=== PATIENT | female | born 1995 ===

== ENCOUNTER 2020-10-17 18:00 | Inpatient (IN) | payer MEDICAID, OTHER, SELFPAY ==
[2020-10-17 19:41] VITALS: BMI 34.2
[2020-10-17] MEDS ORDERED: Misoprostol 200 MCG TAB PR PRN (19:41)
[2020-10-17] MEDS ORDERED: Methylergonovine 0.2 MG/ML VIAL IM PRN (19:41)
[2020-10-17] MEDS ORDERED: HYDROcodone/Acetaminophen 5/325 mg Tablet PO PRN (19:41)
[2020-10-17] MEDS ORDERED: Carboprost 250 MCG/ML AMP IM PRN (19:41)
[2020-10-17] MEDS ORDERED: hydrALAZINE 20 MG/ML VIAL SLOW IVP PRN (19:41)
[2020-10-17] MEDS ORDERED: Promethazine HCl 25 MG/ML VIAL IM PRN (19:41)
[2020-10-17] MEDS ORDERED: Ibuprofen 800 MG TAB PO PRN (19:41)
[2020-10-17] MEDS ORDERED: Lidocaine 1% (PF) 30 ML VIAL SC PRN (19:41)
[2020-10-17] MEDS ORDERED: Acetaminophen 500 MG TAB PO PRN (19:41)
[2020-10-17] MEDS ORDERED: Diphenoxylate HCl/Atropine Tablet PO PRN (19:41)
[2020-10-17] MEDS ORDERED: Ondansetron PF 4 MG/2 ML Vial IVP PRN (19:41)
[2020-10-17] MEDS ORDERED: Penicillin G 2.5 MILL.units 2.5 MILL.UNITS in Premix Bag 1 BAG IVPB SCH (19:45)
[2020-10-17] MEDS ORDERED: NS w/ Oxytocin 30 units 500 ML IVPB SCH (19:45)
[2020-10-17] MEDS ORDERED: Lactated Ringer's 1,000 ML IV SCH (19:45)
[2020-10-17] MEDS ORDERED: Penicillin G Potassium 5 MILL.UNITS in Sodium Chloride 0.9% 100 ML IVPB SCH (19:45)
[2020-10-17] MEDS ORDERED: NS w/ Oxytocin 30 units 500 ML IV SCH ×2 (19:45)
[2020-10-17] MEDS: Misoprostol 100 MCG TAB PO SCH (20:38)
[2020-10-17 22:16] LABS: Hemoglobin 11.4 g/dL (12.0-15.5); Mean Corpuscular HGB CONC 33.2 g/dL (32.0-36.0); Mean Corpuscular Hemoglobin 27.9 pg (27.0-33.0); Mean Corpuscular Volume 84.1 fl (81.6-98.3); Mean Platelet Volume 11.6 fl (7.4-10.4); Platelet Count 251 10x3/uL (150-450); RBC Distribution Width 13.8 % (11.5-14.5); Red Blood Cell (RBC) Count 4.08 10x6/uL (3.90-5.03); White Blood Cell (WBC) Count 12.1 10x3/uL (3.5-10.5)
[2020-10-17 22:52] LABS: Syphilis Antibody Nonreactive (Nonreactive); Syphilis Antibody Index 0.03 S/CO (<1.00 Non-Reactive)
[2020-10-17 22:53] LABS: Hep B Surf Ag Non-Reactive S/CO (NonReactive)
[2020-10-17 23:08] LABS: HBSAg Index 0.03 S/CO (0-0.99)
[2020-10-18] MEDS: Misoprostol 100 MCG TAB PO SCH ×3 (01:01→09:36)
[2020-10-18] MEDS: Butorphanol Tartrate 1 MG/ML VIAL SLOW IVP PRN ×2 (02:53→13:29)
[2020-10-18] MEDS ORDERED: Penicillin G Potassium 5 MILL.UNITS VIAL ONE (11:28)
[2020-10-18] MEDS ORDERED: Fentanyl 2 mcg/Bup 0.1% Cadd 100 ML ONE (14:34)
[2020-10-18] MEDS ORDERED: Lactated Ringer's 500 ML IV PRN (15:09)
[2020-10-18] MEDS ORDERED: Ondansetron PF 4 MG/2 ML Vial IVP PRN ×2 (15:09→18:30)
[2020-10-18] MEDS ORDERED: Acetaminophen 325 MG TAB PO PRN (15:09)
[2020-10-18] MEDS ORDERED: diphenhydrAMINE 50 MG/ML VIAL IVP PRN (15:09)
[2020-10-18] MEDS ORDERED: Hydrocerin (Eucerin) Cream 120 gm Jar TOP PRN (15:09)
[2020-10-18] MEDS ORDERED: ePHEDrine Sulfate 50 MG/10 ML VIAL SLOW IVP PRN (15:09)
[2020-10-18] MEDS ORDERED: Promethazine HCl 25 MG/ML VIAL IM PRN ×2 (15:09→18:30)
[2020-10-18] MEDS ORDERED: Naloxone HCl 0.4 mg/ml Vial IVP PRN ×2 (15:09)
[2020-10-18] MEDS ORDERED: Communication Order-Pharmacy FS SCH (15:15)
[2020-10-18] MEDS ORDERED: Fentanyl 2 mcg/Bupivacaine 0.1% Cassette 100 ML EPIDURAL SCH (15:15)
[2020-10-18] MEDS ORDERED: Penicillin G 2.5 MILL.units 2.5 MILL.UNITS in Premix Bag 1 BAG IVPB SCH (15:30)
[2020-10-18] MEDS ORDERED: Milk Of Magnesia 30 ML UDCUP PO PRN (18:30)
[2020-10-18] MEDS ORDERED: Boostrix 0.5 ML (Tdap) VIAL IM ONE (18:30)
[2020-10-18] MEDS ORDERED: hydrALAZINE 20 MG/ML VIAL SLOW IVP PRN (18:30)
[2020-10-18] MEDS ORDERED: diphenhydrAMINE 25 MG CAP PO PRN (18:30)
[2020-10-18] MEDS ORDERED: HYDROcodone/Acetaminophen 5/325 mg Tablet PO PRN (18:30)
[2020-10-18] MEDS ORDERED: Benzocaine-Menthol 82.5 ML CAN TOP PRN (18:30)
[2020-10-18] MEDS ORDERED: Lanolin Ointment 7 GM TUBE TOP PRN (18:30)
[2020-10-18] MEDS ORDERED: Bisacodyl 10 MG SUPP PR PRN (18:30)
[2020-10-18] MEDS: Ibuprofen 800 MG TAB PO SCH (21:30)
[2020-10-18] MEDS: Docusate Calcium (SURFAK) 240 MG CAP PO SCH (21:30)
[2020-10-19] MEDS: Ibuprofen 800 MG TAB PO SCH ×2 (05:55→15:04)
[2020-10-19] MEDS: Ferrous Sulfate 325 MG TAB PO SCH ×2 (08:30→17:24)
[2020-10-19] MEDS: Docusate Calcium (SURFAK) 240 MG CAP PO SCH (08:36)
[2020-10-19] MEDS ORDERED: Prenatal Vitamin 1 TAB PO SCH (09:00)
[2020-10-19 17:48] VITALS: BP 112/57; TEMP 98.5
[2020-10-19] MEDS ORDERED: Measles/Mumps/Rubella 10 MCG/0.5 ML VIAL SC ONE (18:45)
== END 2020-10-19 19:45 | disposition home or self-care (01) | DRG 807 ==
LOC: CSHLD 19:29 → CSHPED 10-18 20:06
PROVIDERS: ADMIT Family Medicine; ATTEND Family Medicine
PROC: 10907ZC Drainage of Amniotic Fluid, Therapeutic from Products of Conception, Via Natural or Artificial Opening (ICD-10-PCS; 2020-10-17)
PROC: 3E0DXGC Introduction of Other Therapeutic Substance into Mouth and Pharynx, External Approach (ICD-10-PCS; 2020-10-17)
PROC: 10E0XZZ Delivery of Products of Conception, External Approach (ICD-10-PCS; principal; 2020-10-18)
DX: O99.824 Streptococcus B carrier state complicating childbirth (principal); Z37.0 Single live birth; Z3A.39 39 weeks gestation of pregnancy; O24.420 Gestational diabetes mellitus in childbirth, diet controlled
CPT/HCPCS: 36416; 51702; 85027; 86780; 86850; 86900; 86901; 87340; 90707; J0595; J2540; J2590; J3490